=== PATIENT | male | born 1940 | race African-American/Black ===

== ENCOUNTER 2023-05-24 14:33 | Emergency (ER) | payer OTHER, MEDICARE ==
[2023-05-24 14:39] VITALS: BP 165/79; PULSE 77; RESP 18; TEMP 97.9; BMI 21.7
[2023-05-24 16:56] LABS: BASO % 0.5 % (0-2.0); EOS % 1.5 % (0-4.5); HEMATOCRIT 37.9 % (35.4-49); HEMOGLOBIN 12.9 GM/dL (11.7-16.9); LYMPH % 30.2 % (8-40); MCH 30.4 pg (25.7-33.7); MCHC 33.9 g/dl (32.0-35.9); MEAN CELL VOLUME 89.7 fl (80-96); MEAN PLT VOLUME 9.6 fl (7.5-11.1); MONO % 8.1 % (3.8-10.2); NEUT % 59.7 % (42.8-82.8); PLATELET COUNT 142 10^3/uL (134-434); RBC 4.23 M/mm3 (4.00-5.60); RDW 13.2 % (11.9-15.9); WHITE BLOOD COUNT 5.1 K/mm3 (4.0-10.0)
[2023-05-24 16:56] LABS: PH,URINE 6.5 (5.0-8.0); URINE APPEARANCE CLEAR; URINE BILIRUBIN NEGATIVE (NEGATIVE); URINE COLOR YELLOW; URINE GLUCOSE (UA) NEGATIVE (NEGATIVE); URINE KETONE NEGATIVE (NEGATIVE); URINE LEUK ESTERASE NEGATIVE (NEGATIVE); URINE NITRITE NEGATIVE (NEGATIVE); URINE PROTEIN NEGATIVE (NEGATIVE); URINE UROBILINOGEN 0.2 mg/dL (0.2-1.0)
[2023-05-24 17:24] LABS: POTASSIUM 4.3 mmol/L (3.5-5.1)
[2023-05-24 17:26] LABS: ALBUMIN 3.8 g/dl (3.4-5.0); BLOOD UREA NITROGEN 16.2 mg/dL (7-18)
[2023-05-24 17:29] LABS: CREATININE 1.2 mg/dL (0.55-1.3)
[2023-05-24 17:31] LABS: BILIRUBIN,TOTAL 0.2 mg/dL (0.2-1)
== END 2023-05-24 18:20 | disposition home or self-care (01) ==
LOC: JER 14:33
PROC: 0T9B70Z Drainage of Bladder with Drainage Device, Via Natural or Artificial Opening (ICD-10-PCS; principal; 2023-05-24)
DX: R10.30 Lower abdominal pain, unspecified (principal); R33.9 Retention of urine, unspecified; Z46.6 Encounter for fitting and adjustment of urinary device
CPT/HCPCS: 36415; 80053; 81003; 85025; 87086; 99283-25

== ENCOUNTER 2023-05-26 12:20 | Emergency (ER) | payer OTHER, MEDICARE ==
[2023-05-26 12:26] VITALS: BP 165/87; PULSE 76; RESP 19; TEMP 97.9; BMI 21.7
== END 2023-05-26 14:39 | disposition home or self-care (01) ==
LOC: JER 12:20
DX: R33.9 Retention of urine, unspecified (principal); K59.09 Other constipation
CPT/HCPCS: 99282-25

== ENCOUNTER 2023-06-07 15:25 | Emergency (ER) | payer OTHER, MEDICARE ==
[2023-06-07 15:29] VITALS: BP 165/79; PULSE 79; RESP 18; TEMP 98.1; BMI 21.7
[2023-06-07] MEDS ORDERED: SODIUM CHLORIDE 0.9% 500 ML INFUS.BAG IV ONE (16:11)
== END 2023-06-07 17:13 | disposition home or self-care (01) ==
LOC: JER 15:25
DX: R42 Dizziness and giddiness (principal); T44.6X5A Adverse effect of alpha-adrenoreceptor antagonists, initial encounter
CPT/HCPCS: 93005; 93010; 99283-25

== ENCOUNTER 2023-06-29 18:55 | Emergency (ER) | payer OTHER, MEDICARE ==
[2023-06-29 19:31] VITALS: BP 177/91; PULSE 85; RESP 18; TEMP 98.2; BMI 22.4
[2023-06-29 21:13] LABS: BASO % 0.7 % (0-2.0); HEMATOCRIT 39.4 % (35.4-49); HEMOGLOBIN 13.4 GM/dL (11.7-16.9); LYMPH % 29.2 % (8-40); MCH 30.4 pg (25.7-33.7); MCHC 34.1 g/dl (32.0-35.9); MEAN CELL VOLUME 89.1 fl (80-96); MEAN PLT VOLUME 9.9 fl (7.5-11.1); MONO % 7.8 % (3.8-10.2); NEUT % 60.3 % (42.8-82.8); PLATELET COUNT 143 10^3/uL (134-434); RBC 4.42 M/mm3 (4.00-5.60); RDW 13.2 % (11.9-15.9); WHITE BLOOD COUNT 5.1 K/mm3 (4.0-10.0)
[2023-06-29 21:24] LABS: POTASSIUM 4.2 mmol/L (3.5-5.1)
[2023-06-29 21:26] LABS: CALCIUM 9.1 mg/dL (8.5-10.1)
[2023-06-29 21:27] LABS: BLOOD UREA NITROGEN 14.9 mg/dL (7-18)
[2023-06-29 21:29] LABS: CREATININE 1.1 mg/dL (0.55-1.3)
[2023-06-29 21:31] LABS: BILIRUBIN,TOTAL 0.4 mg/dL (0.2-1); TOT PROT 7.6 g/dl (6.4-8.2)
[2023-06-29 21:59] LABS: URINE APPEARANCE CLEAR; URINE BILIRUBIN NEGATIVE (NEGATIVE); URINE COLOR YELLOW; URINE GLUCOSE (UA) 1+ (NEGATIVE); URINE KETONE NEGATIVE (NEGATIVE); URINE LEUK ESTERASE NEGATIVE (NEGATIVE); URINE NITRITE NEGATIVE (NEGATIVE); URINE PROTEIN NEGATIVE (NEGATIVE); URINE UROBILINOGEN 0.2 mg/dL (0.2-1.0)
== END 2023-06-30 00:25 | disposition home or self-care (01) ==
LOC: JER 18:55
DX: R10.13 Epigastric pain (principal); K59.00 Constipation, unspecified
CPT/HCPCS: 36415; 71045-TC-FY; 74177-TC; 80053; 81003; 83605; 83690; 84484; 85025; 87086; 93005; 93010; 99285-25

== ENCOUNTER 2023-08-08 10:20 | Emergency (ER) | payer OTHER, MEDICARE ==
[2023-08-08 10:42] VITALS: BP 160/85; PULSE 90; RESP 18; TEMP 98.1; BMI 22.6
[2023-08-08 12:13] LABS: PH,URINE 6.5 (5.0-8.0); URINE APPEARANCE CLEAR; URINE BILIRUBIN NEGATIVE (NEGATIVE); URINE COLOR YELLOW; URINE GLUCOSE (UA) NEGATIVE (NEGATIVE); URINE KETONE NEGATIVE (NEGATIVE); URINE LEUK ESTERASE NEGATIVE (NEGATIVE); URINE NITRITE NEGATIVE (NEGATIVE); URINE PROTEIN NEGATIVE (NEGATIVE); URINE UROBILINOGEN 0.2 mg/dL (0.2-1.0)
[2023-08-08 12:15] LABS: EPI CELLS 3 /uL (0-25.1); HYALINE CASTS 0 /uL (0-3.1); URINE BACTERIA 0 /uL (0-1359); URINE RBC 8 /uL (0-23.9); URINE WBC 1 /uL (0-25.8)
== END 2023-08-08 13:11 | disposition home or self-care (01) ==
LOC: JER 10:20
DX: N40.1 Benign prostatic hyperplasia with lower urinary tract symptoms (principal); R33.9 Retention of urine, unspecified; R35.0 Frequency of micturition
CPT/HCPCS: 81003; 87086; 99283-25

== ENCOUNTER 2023-12-20 05:49 | Emergency (ER) | payer OTHER, MEDICARE ==
[2023-12-20 05:59] VITALS: BMI 22.4
[2023-12-20] MEDS: SODIUM CHLORIDE 0.9% 500 ML INFUS.BAG IV ONE (06:45)
[2023-12-20 06:51] LABS: EOS % 1.8 % (0-4.5); HEMATOCRIT 38.1 % (35.4-49); HEMOGLOBIN 13.2 GM/dL (11.7-16.9); LYMPH % 30.5 % (8-40); MCH 30.9 pg (25.7-33.7); MCHC 34.5 g/dl (32.0-35.9); MEAN CELL VOLUME 89.7 fl (80-96); MONO % 7.7 % (3.8-10.2); PLATELET COUNT 142 10^3/uL (134-434); RBC 4.25 M/mm3 (4.00-5.60); RDW 12.7 % (11.9-15.9); WHITE BLOOD COUNT 4.6 K/mm3 (4.0-10.0)
[2023-12-20 07:01] LABS: INR 1.08 (0.83-1.09); PROTHROMBIN TIME (PATIENT) 12.5 SEC (9.7-13.0)
[2023-12-20 07:04] LABS: ACTIVATED PTT 28.5 SECONDS (25.2-36.5)
[2023-12-20 07:09] LABS: CALCIUM 9.3 mg/dL (8.5-10.1)
[2023-12-20 07:10] LABS: ALBUMIN 3.8 g/dl (3.4-5.0); BLOOD UREA NITROGEN 10.2 mg/dL (7-18)
[2023-12-20 07:13] LABS: CREATININE 0.9 mg/dL (0.55-1.3)
[2023-12-20 07:14] LABS: BILIRUBIN,TOTAL 0.6 mg/dL (0.2-1); TOT PROT 7.4 g/dl (6.4-8.2)
[2023-12-20 10:05] VITALS: BP 144/77; PULSE 83; RESP 20; TEMP 97.5
== END 2023-12-20 13:26 | disposition home or self-care (01) ==
LOC: JER 05:49
DX: K52.9 Noninfective gastroenteritis and colitis, unspecified (principal); R10.9 Unspecified abdominal pain
CPT/HCPCS: 36415; 74177-TC; 80053; 83690; 85025; 85610; 85730; 86850; 86900; 86901; 99285-25

== ENCOUNTER 2023-12-23 10:24 | Emergency (ER) | payer OTHER, MEDICARE ==
[2023-12-23 10:37] VITALS: BP 149/66; PULSE 76; RESP 18; TEMP 97.7; BMI 22.4
[2023-12-23 11:48] LABS: BASO % 0.6 % (0-2.0); HEMATOCRIT 36.3 % (35.4-49); HEMOGLOBIN 12.7 GM/dL (11.7-16.9); LYMPH % 26.4 % (8-40); MCH 31.5 pg (25.7-33.7); MCHC 34.9 g/dl (32.0-35.9); MEAN CELL VOLUME 90.1 fl (80-96); MEAN PLT VOLUME 9.7 fl (7.5-11.1); MONO % 8.4 % (3.8-10.2); NEUT % 63.6 % (42.8-82.8); PLATELET COUNT 146 10^3/uL (134-434); RBC 4.03 M/mm3 (4.00-5.60); RDW 13.2 % (11.9-15.9); WHITE BLOOD COUNT 3.9 K/mm3 (4.0-10.0)
== END 2023-12-23 13:07 | disposition home or self-care (01) ==
LOC: JER 10:24
DX: K62.5 Hemorrhage of anus and rectum (principal)
CPT/HCPCS: 36415; 82272; 85025; 99283-25

== ENCOUNTER 2024-03-11 20:48 | Emergency (ER) | payer OTHER, MEDICARE ==
[2024-03-11 21:05] VITALS: RESP 19; TEMP 98.1; BMI 25.0
[2024-03-11 22:41] VITALS: BP 177/90; PULSE 119
== END 2024-03-11 22:47 | disposition home or self-care (01) ==
LOC: JER 20:48
DX: I10 Essential (primary) hypertension (principal); R51.9 Headache, unspecified
CPT/HCPCS: 99283-25

== ENCOUNTER 2024-07-19 11:10 | Emergency (ER) | payer OTHER, MEDICARE ==
[2024-07-19 11:34] VITALS: BP 176/93; PULSE 75; RESP 16; TEMP 97.7; BMI 21.1
== END 2024-07-19 12:47 | disposition home or self-care (01) ==
LOC: JER 11:10
DX: I10 Essential (primary) hypertension (principal); R33.9 Retention of urine, unspecified
CPT/HCPCS: 93005; 93010; 99283-25

== ENCOUNTER 2024-07-29 10:21 | Emergency (ER) | payer OTHER, MEDICARE ==
[2024-07-29 10:32] VITALS: BP 160/80; PULSE 85; RESP 18; TEMP 98.4; BMI 21.7
== END 2024-07-29 12:23 | disposition home or self-care (01) ==
LOC: JER 10:21
DX: K64.4 Residual hemorrhoidal skin tags (principal)
CPT/HCPCS: 99283-25

== ENCOUNTER 2024-08-24 21:05 | Emergency (ER) | payer OTHER, MEDICARE ==
[2024-08-24 21:19] VITALS: BP 138/72; PULSE 77; RESP 15; TEMP 98.1; BMI 22.4
[2024-08-24] MEDS: MINERAL OIL ENEMA 133 ML ENEMA RC ONE ×2 (22:19→22:40)
[2024-08-24] MEDS: PEG 3350/NA SULF BICARB CL/KCL 4000 ML SOLN.RECON PO ONE (22:54)
== END 2024-08-25 00:27 | disposition home or self-care (01) ==
LOC: JER 21:05
DX: K59.00 Constipation, unspecified (principal); R10.84 Generalized abdominal pain
CPT/HCPCS: 74018-TC-FY; 99283-25